=== PATIENT | male | born 1935 | race Two or more races ===

== ENCOUNTER 2020-03-02 17:22 | Emergency (ER) | payer BC ==
[~2020-03-02] VITALS: Ht 172.7 cm; Wt 71.7 kg
[2020-03-02 19:45] VITALS: BP 144/92
[2020-03-02 22:29] LABS: Urine Bacteria NONE SEEN /hpf (None Seen); Urine Blood TRACE /uL (Negative); Urine Mucus FEW (None Seen); Urine Specific Gravity 1.012 (1.001-1.035); Urine Sperm PRESENT /hpf (None Seen); Urine WBC 8 /hpf (0 - 3)
== END 2020-03-02 21:54 | disposition home or self-care (01) ==
LOC: ER 17:22
DX: R33.9 Retention of urine, unspecified (principal)
CPT/HCPCS: 51702; 81001

== ENCOUNTER 2020-03-08 17:59 | Emergency (ER) | payer BC ==
[~2020-03-08] VITALS: Ht 172.7 cm; Wt 71.7 kg
[2020-03-08] MEDS ORDERED: SODIUM CHLORIDE 0.9% 1,000 ML IV ONE (19:15)
[2020-03-08] MEDS ORDERED: ACETAMINOPHEN 500 MG TAB PO ONE (19:15)
[2020-03-08 20:41] VITALS: BP 151/85
[2020-03-08 21:24] LABS: Urine Bacteria FEW /hpf (None Seen); Urine Blood 3+ /uL (Negative); Urine Mucus FEW (None Seen); Urine WBC 10 /hpf (0 - 3)
== END 2020-03-08 23:00 | disposition home or self-care (01) ==
LOC: ER 17:59
DX: Z46.6 Encounter for fitting and adjustment of urinary device (principal); N13.9 Obstructive and reflux uropathy, unspecified; Z88.0 Allergy status to penicillin
CPT/HCPCS: 51702; 81001; 96360

== ENCOUNTER 2020-06-06 09:51 | Emergency (ER) | payer BC ==
[~2020-06-06] VITALS: Ht 165.1 cm; Wt 68.0 kg
[2020-06-06 10:09] VITALS: BP 167/92
== END 2020-06-06 10:58 | disposition home or self-care (01) ==
LOC: ER 09:51
DX: N39.0 Urinary tract infection, site not specified (principal); R33.9 Retention of urine, unspecified
CPT/HCPCS: 51702; 81002

== ENCOUNTER 2020-08-30 08:47 | Emergency (ER) | payer BC ==
[~2020-08-30] VITALS: Ht 162.6 cm; Wt 70.3 kg
[2020-08-30 08:56] VITALS: BP 148/80
[2020-08-30 10:28] LABS: Urine Bacteria NONE SEEN /hpf (None Seen); Urine Blood 1+ /uL (Negative); Urine Mucus FEW (None Seen); Urine Specific Gravity 1.017 (1.001-1.035); Urine WBC 27 /hpf (0 - 3)
== END 2020-08-30 10:42 | disposition home or self-care (01) ==
LOC: ER 08:47
DX: T83.018A Breakdown (mechanical) of other urinary catheter, initial encounter (principal); N39.0 Urinary tract infection, site not specified; Z88.0 Allergy status to penicillin
CPT/HCPCS: 51702; 81001

== ENCOUNTER 2020-11-12 16:32 | Emergency (ER) | payer BC ==
[~2020-11-12] VITALS: Ht 165.1 cm; Wt 68.0 kg
[2020-11-12 17:18] VITALS: BP 136/73
[2020-11-12 17:51] LABS: Urine Bacteria FEW /hpf (None Seen); Urine Blood 2+ /uL (Negative); Urine Hyaline Cast FEW /lpf (0 - 2); Urine Mucus FEW (None Seen); Urine Specific Gravity 1.021 (1.001-1.035); Urine WBC 17 /hpf (0 - 3)
== END 2020-11-12 17:56 | disposition home or self-care (01) ==
LOC: ER 16:32
DX: N39.0 Urinary tract infection, site not specified (principal); E11.9 Type 2 diabetes mellitus without complications; Z88.0 Allergy status to penicillin; Z46.6 Encounter for fitting and adjustment of urinary device
CPT/HCPCS: 51702; 81001

== ENCOUNTER 2021-03-18 17:19 | Emergency (ER) | payer OTHER, BC ==
[~2021-03-18] VITALS: Ht 165.1 cm; Wt 72.6 kg
[2021-03-18 17:19] VITALS: BP 138/74
== END 2021-03-19 19:40 | disposition left against medical advice (07) ==
LOC: ER 17:19
DX: T83.9XXA Unspecified complication of genitourinary prosthetic device, implant and graft, initial encounter (principal); Z90.49 Acquired absence of other specified parts of digestive tract; Z88.0 Allergy status to penicillin

== ENCOUNTER 2021-03-19 10:48 | Emergency (ER) | payer OTHER, MEDICAID ==
[~2021-03-19] VITALS: Ht 165.1 cm; Wt 72.6 kg
[2021-03-19 13:15] VITALS: BP 121/70
== END 2021-03-19 13:31 | disposition home or self-care (01) ==
LOC: ER 10:48
DX: Z46.6 Encounter for fitting and adjustment of urinary device (principal); Z88.0 Allergy status to penicillin; Z90.89 Acquired absence of other organs
CPT/HCPCS: 51702

== ENCOUNTER 2021-07-27 18:30 | Emergency (ER) | payer OTHER, MEDICAID ==
[~2021-07-27] VITALS: Ht 167.6 cm; Wt 72.6 kg
[2021-07-27 23:32] LABS: Urine Bacteria MOD /hpf (None Seen); Urine Blood 2+ /uL (Negative); Urine Mucus FEW (None Seen); Urine Specific Gravity 1.021 (1.001-1.035); Urine WBC 866 /hpf (0 - 3); Urine WBC Clumps PRESENT /hpf (None Seen)
[2021-07-28] MEDS ORDERED: CIPR-173 PO (03:00)
[2021-07-28 03:11] VITALS: BP 120/82
== END 2021-07-28 04:39 | disposition home or self-care (01) ==
LOC: ER 18:31
DX: T83.011A Breakdown (mechanical) of indwelling urethral catheter, initial encounter (principal); R33.9 Retention of urine, unspecified; N39.0 Urinary tract infection, site not specified; Z90.49 Acquired absence of other specified parts of digestive tract; Z79.2 Long term (current) use of antibiotics; Z88.0 Allergy status to penicillin; Y92.89 Other specified places as the place of occurrence of the external cause
CPT/HCPCS: 51702; 81001; 87086; 93005

== ENCOUNTER 2021-08-27 16:28 | Emergency (ER) | payer OTHER, MEDICAID ==
[~2021-08-27] VITALS: Ht 165.1 cm; Wt 71.7 kg
[2021-08-27 17:04] VITALS: BP 139/84
== END 2021-08-27 17:22 | disposition home or self-care (01) ==
LOC: ER 16:28
DX: T83.091A Other mechanical complication of indwelling urethral catheter, initial encounter (principal); Z88.0 Allergy status to penicillin
CPT/HCPCS: 51702

== ENCOUNTER 2021-10-29 11:09 | Emergency (ER) | payer OTHER, MEDICAID ==
[~2021-10-29] VITALS: Ht 167.6 cm; Wt 70.3 kg
[2021-10-29 11:39] VITALS: BP 141/79
[2021-10-29 13:29] LABS: Urine Amorphous Crystal FEW /hpf (None Seen); Urine Bacteria MANY /hpf (None Seen); Urine Blood 3+ /uL (Negative); Urine Mucus FEW (None Seen); Urine Specific Gravity 1.008 (1.001-1.035); Urine WBC 7 /hpf (0 - 3)
[2021-10-29] MEDS ORDERED: CIPR-173 PO (14:41)
== END 2021-10-29 14:51 | disposition home or self-care (01) ==
LOC: ER 11:09
DX: N39.0 Urinary tract infection, site not specified (principal)
CPT/HCPCS: 51702; 81001

== ENCOUNTER 2021-12-21 11:11 | Emergency (ER) | payer OTHER, MEDICAID ==
[~2021-12-21] VITALS: Ht 167.6 cm; Wt 70.3 kg
[~2021-12-21 11:11] MED LIST: CIPR-173 PO
[2021-12-21 16:27] LABS: Urine Bacteria MANY /hpf (None Seen); Urine Blood 3+ /uL (Negative); Urine Specific Gravity 1.005 (1.001-1.035); Urine WBC 220 /hpf (0 - 3)
[2021-12-21] MEDS ORDERED: NITR-87 PO (16:30)
[2021-12-21 17:20] VITALS: BP 107/77
== END 2021-12-21 17:31 | disposition home or self-care (01) ==
LOC: ER 11:40
DX: Z46.6 Encounter for fitting and adjustment of urinary device (principal); N39.0 Urinary tract infection, site not specified; Z90.49 Acquired absence of other specified parts of digestive tract; Z79.2 Long term (current) use of antibiotics; Z79.899 Other long term (current) drug therapy; Z88.0 Allergy status to penicillin
CPT/HCPCS: 51702; 81001

== ENCOUNTER 2022-01-27 10:08 | Emergency (ER) | payer OTHER, MEDICAID ==
[~2022-01-27] VITALS: Ht 165.1 cm; Wt 63.9 kg
[~2022-01-27 10:08] MED LIST changes: +NITR-87 PO
[2022-01-27 10:45] VITALS: BP 131/79
[2022-01-27] MEDS ORDERED: CIPR-173 PO (12:19)
== END 2022-01-27 12:34 | disposition home or self-care (01) ==
LOC: ER 10:08
DX: N39.0 Urinary tract infection, site not specified (principal); Z46.6 Encounter for fitting and adjustment of urinary device
CPT/HCPCS: 51702

== ENCOUNTER 2022-03-02 10:31 | Emergency (ER) | payer OTHER, MEDICAID ==
[~2022-03-02] VITALS: Ht 165.1 cm; Wt 67.5 kg
[2022-03-02 16:00] VITALS: BP 129/75
== END 2022-03-02 18:25 | disposition home or self-care (01) ==
LOC: ER 10:31
DX: N40.0 Benign prostatic hyperplasia without lower urinary tract symptoms (principal); Z46.6 Encounter for fitting and adjustment of urinary device
CPT/HCPCS: 51702; 81002

== ENCOUNTER 2022-07-22 10:46 | Emergency (ER) | payer OTHER, MEDICAID ==
[~2022-07-22] VITALS: Ht 165.1 cm; Wt 68.1 kg
[2022-07-22 12:00] VITALS: BP 130/81
[2022-07-22] MEDS ORDERED: LIDOCAINE 1% HCL (LOCAL ANESTH.) INJ 20ML MDV ONE (13:54)
[2022-07-22] MEDS ORDERED: cefTRIAXone SOD 1,000 MG VL IM ONE (14:00)
[2022-07-22] MEDS ORDERED: CIPR-173 PO (14:08)
[2022-07-22 15:14] LABS: Urine Bacteria FEW /hpf (None Seen); Urine Blood 2+ /uL (Negative); Urine Specific Gravity 1.011 (1.001-1.035); Urine WBC 32 /hpf (0 - 3); Urine WBC Clumps PRESENT /hpf (None Seen)
== END 2022-07-22 14:27 | disposition home or self-care (01) ==
LOC: ER 10:46
DX: N39.0 Urinary tract infection, site not specified (principal); Z46.6 Encounter for fitting and adjustment of urinary device; Z88.0 Allergy status to penicillin
CPT/HCPCS: 51702; 81001; 96372; 99284; J0696; J2001